=== PATIENT | male | born 1970 | race African-American/Black ===

== ENCOUNTER → 2018-08-17 | Outpatient (CLI) | payer OTHER ==
--- NOTE | 2018-08-18 08:57 | RADIOLOGY REPORT (SQ) ---
EXAM DESCRIPTION: MRI THORACIC SPINE COMBO COMPLETED DATE/TIME: 08/17/2018 8:19 pm REASON FOR STUDY: S24.2XXA INJURY OF NERVE ROOT OF THORACIC SPINE, INITIAL ENCOUNTER S24.2XXA INJUR Y OF NERVE ROOT OF THORACIC SPINE, INITIAL ENC COMPARISON: Report only, MRI thoracic spine 05/29/2018, MRI lumbar spine 04/15/2009 from the [facility] TECHNIQUE: Sagittal and Axial imaging includes T1, T2, STIR and gradient echo sequences. T1 post ga dolinium sequences. CONTRAST TYPE AND DOSE: 20 mL Dotarem. RENAL FUNCTION: Not indicated. ACR Type II contrast agent associated with few, if any, unconfounded cases of NSF LIMITATIONS: None. FINDINGS: Within the rightward lateral aspect of the thoracic spinal cord at the T9-10 level, a smal l focus of cystic encephalomalacia is present measuring about 6 x 5 mm in size. This is best shown o n sagittal T2 image 7 and axial T2 series 8, image 37. This likely represents a small focus of myelo malacia, possibly related to right nerve root avulsion. On the axial and sagittal T1 post contrasted images, there is no abnormal contrast enhancement in this area to suggest tumor. These findings are similar compared to report from MRI 05/29/2018 LOCALIZER: No worrisome findings. ALIGNMENT: Normal. VERTEBRAE: Intact. BONE MARROW: Minimal fatty reactive vertebral body endplate change at T7-8 HARDWARE: None in the spine. CORD: Normal in size and signal intensity. SOFT TISSUES: No soft tissue masses. THORACIC DISCS T1-T12: Diffuse decreased T2 weighted intervertebral disc signal with disc space loss of height throughout the thoracic intervertebral discs. T1-2 demonstrates mild bilateral foraminal narrowing from facet hypertrophy. No central stenosis. T2-3, T3-4, T4-5, T5-6, T6-7, T7-8, T8-9, and T9-10 demonstrate minimal facet arthropathy and mild po sterior disc bulging without significant central or foraminal stenosis. At T10-11, broad diffuse posterior disc bulging and moderate facet and ligament hypertrophy cause bor derline central canal narrowing mild to moderate bilateral foraminal narrowing. At T11-12, a moderat e size right paracentral disc protrusion is present, abutting the rightward ventral cord without cord flattening moderate to high-grade right foraminal narrowing borderline central canal narrowing. Mil d left foraminal narrowing. T12-L1 is partially cropped from the bottom of the field of view LOWER CERVICAL: Incompletely imaged. No significant spinal stenosis or exit foraminal stenosis. UPPER LUMBAR: Not in the field of view ENHANCEMENT: No abnormal enhancement. OTHER: No other significant finding. IMPRESSION: Stable small focus of cystic myelomalacia in the rightward thoracic cord at the T9-10 le tony, unchanged from MRI report 05/29/2018. TECHNICAL DOCUMENTATION: JOB ID: [id number] [employer]- All Rights Reserved Reading location - IP/workstation name: [email or web address]
== END ==
LOC: RAD 19:21
PROVIDERS: ATTEND Physician Assistant
DX: S24.2XXA Injury of nerve root of thoracic spine, initial encounter (principal)
CPT/HCPCS: 82565; 72157; A9576

== ENCOUNTER → 2018-09-05 | Outpatient (CLI) | payer OTHER ==
--- NOTE | 2018-09-06 08:17 | RADIOLOGY REPORT (SQ) ---
EXAM DESCRIPTION: L SPINE W/FLEX/EXT COMPLETED DATE/TIME: 09/05/2018 7:32 pm REASON FOR STUDY: LUMBAR RADICULOPATHY COMPARISON: None. NUMBER OF VIEWS: Five views including obliques. TECHNIQUE: AP, lateral, oblique, and sacral radiographic images acquired of the lumbar spine. LIMITATIONS: None. FINDINGS: MINERALIZATION: Normal. SEGMENTATION: Normal. No transitional anatomy. ALIGNMENT: Normal. VERTEBRAE: Maintained height. No fracture or worrisome bone lesion. DISCS: Multilevel disc space narrowing throughout the lumbar spine most pronounced at L5-S1 and L4-5 POSTERIOR ELEMENTS: Mild bilateral facet arthropathy at L5-S1 HARDWARE: None in the spine. PARASPINAL SOFT TISSUES: Normal. PELVIS: SI joints intact OTHER: No other significant finding. IMPRESSION: Diffuse degenerative changes TECHNICAL DOCUMENTATION: JOB ID: [id number] [employer]- All Rights Reserved Reading location - IP/workstation name: [email or web address]
== END ==
LOC: RAD 19:01
PROVIDERS: ATTEND Specialist
DX: M54.16 Radiculopathy, lumbar region (principal)
CPT/HCPCS: 72114